=== PATIENT | male | born 1955 | race Caucasian/White ===

== ENCOUNTER → 2017-04-25 | Outpatient (CLI) | payer OTHER ==
[~2017-04-25] MED LIST: SULFUR HEXAFLUORIDE MICROSPHR 25 MG VIAL. IVP ONE
--- NOTE | 2017-04-26 11:24 | PCVCIMAG ---
APPROVED REPORT Study performed: 04/25/2017 08:47:16 EXAM: Comprehensive 2D, Doppler, and color-flow Echocardiogram Patient Location: Echo lab Status: routine Other Information Study Quality: Technically Limited Indications Pacemaker CAD 2D Dimensions IVSd: 9.11 (7-11mm)LVOT Diam: 26.54 (18-24mm) LVDd: 53.67 mm PWd: 8.49 (7-11mm)Ascending Ao: 31.86 (22-36mm) LVDs: 51.08 (25-40mm) Left Atrium: 34.89 (27-40mm) Aortic Root: 33.14 mm LV Single Plane 4CH: 40.27 % LV Single Plane 2CH: 40.73 %Matute's LVEF: 40.50 % Biplane EF: 41.5 % Volumes Left Atrial Volume (Systole) Single Plane 4CH: 44.38 mLSingle Plane 2CH: 69.82 mL LA ESV Index: 26.00 mL/m2 Aortic Valve AoV Peak Alvaro.: 1.09 m/s AO Peak Gr.: 4.71 mmHgLVOT Max P.03 mmHg LVOT Max V: 0.87 m/s ELLIS Vmax: 4.44 cm2 Mitral Valve E/A Ratio: 1.0 MV Decel. Time: 270.82 ms MV E Max Alvaro.: 0.74 m/s MV A Alvaro.: 0.71 m/s IVRT: 128.03 ms Tricuspid Valve TR Peak Alvaro.: 2.52 m/s TR Peak Gr.: 25.44 mmHg Left Ventricle The left ventricle is normal size. There is mild to moderate akinesis in the apical and anterior wall. There is normal left ventricular wall thickess. Left ventricular systolic function is reduced. LVEF is 40%. Right Ventricle The right ventricle is normal size. The right ventricular systolic function is normal. Atria The left atrium size is normal. The right atrium size is normal. Aortic Valve The aortic valve is normal in structure. No aortic regurgitation is present. There is no aortic valvular stenosis. Mitral Valve The mitral valve is normal in structure. Mild to moderate mitral regurgitation. No evidence of mitral valve stenosis. Tricuspid Valve The tricuspid valve is normal in structure. Trace tricuspid regurgitation. Pulmonic Valve The pulmonary valve is normal in structure. There is no pulmonic valvular regurgitation. Great Vessels The aortic root is normal in size. IVC is normal in size and collapses with >50% inspiration Pericardium There is no pericardial effusion. <Conclusion> The left ventricle is normal size. There is mild to moderate akinesis in the apical and anterior wall. Left ventricular systolic function is reduced. LVEF 35-40% The aortic valve is normal in structure. The mitral valve is normal in structure. Mild to moderate mitral regurgitation. The tricuspid valve is normal in structure. Trace tricuspid regurgitation. The pulmonary valve is normal in structure.
== END | disposition home or self-care (01) ==
LOC: PCVCIMAG 08:26
PROVIDERS: ATTEND Internal Medicine
DX: I08.1 Rheumatic disorders of both mitral and tricuspid valves (principal); I25.10 Atherosclerotic heart disease of native coronary artery without angina pectoris; Z95.0 Presence of cardiac pacemaker
CPT/HCPCS: 93306; Q9950

== ENCOUNTER → 2017-06-21 | Outpatient (CLI) | payer OTHER | END | disposition home or self-care (01) | LOC: PCVCCLINIC 10:48 | PROVIDERS: ATTEND Internal Medicine | DX: I25.10 Atherosclerotic heart disease of native coronary artery without angina pectoris (principal); I42.9 Cardiomyopathy, unspecified; I50.9 Heart failure, unspecified; E78.5 Hyperlipidemia, unspecified | CPT/HCPCS: 36415 ==

== ENCOUNTER → 2017-09-26 | Outpatient (CLI) | payer OTHER ==
--- NOTE | 2017-09-26 09:17 | PCVCIMAG ---
APPROVED REPORT Study performed: 09/26/2017 08:26:05 EXAM: Limited 2D, Doppler, and color-flow Echocardiogram Patient Location: Echo lab Status: routine BSA: 2.20 HR: 64 bpmBP: 114/78 mmHg Rhythm: NSR Other Information Study Quality: Adequate Risk Factors: Cardiac Risk Factors: Hyperlipidemia Indications Congestive Heart Failure Pacemaker CAD Cardiomyopathy 2D Dimensions LV Single Plane 4CH: 36.10 % LV Single Plane 2CH: 36.68 %Matute's LVEF: 36.39 % Biplane EF: 37.7 % Aortic Valve AoV Peak Alvaro.: 0.99 m/s AO Peak Gr.: 3.93 mmHg Tricuspid Valve TR Peak Alvaro.: 2.25 m/sRAP Estimate: 7.00 mmHg TR Peak Gr.: 20.28 mmHg PA Pressure: 28.00 mmHg Left Ventricle Left ventricle is grossly normal size. Hypokinesis of distal septum and dyskinesia apex. There is normal left ventricular wall thickness. Left ventricular systolic function is moderately decreased. LVEF is 30-35% with apical dyskinesia. Right Ventricle The right ventricle is normal size. The right ventricular systolic function is normal. Right ventricular systolic function could not be assessed. Right ventricular systolic function is grossly normal. Right ventricle is hypokinetic. Aortic Valve The aortic valve is normal in structure. Trace aortic regurgitation. Mitral Valve The mitral valve is normal in structure. Mild to moderate mitral regurgitation. Tricuspid Valve The tricuspid valve is normal in structure. Trace to mild tricuspid regurgitation.Pulmonary artery pressure is 28 mmHg. Great Vessels IVC is normal in size and collapses >50% with inspiration. <Conclusion> Left ventricle is grossly normal size. LVEF is 30-35% with apical dyskinesia. Hypokinesis of distal septum and dyskinesia apex. The aortic valve is normal in structure. Trace aortic regurgitation. The mitral valve is normal in structure. Mild to moderate mitral regurgitation. The tricuspid valve is normal in structure. Trace to mild tricuspid regurgitation.Pulmonary artery pressure is 28 mmHg.
== END | disposition home or self-care (01) ==
LOC: PCVCIMAG 08:05
PROVIDERS: ATTEND Internal Medicine
DX: I34.0 Nonrheumatic mitral (valve) insufficiency (principal); I50.9 Heart failure, unspecified; E78.5 Hyperlipidemia, unspecified; I25.5 Ischemic cardiomyopathy; I25.10 Atherosclerotic heart disease of native coronary artery without angina pectoris; Z95.0 Presence of cardiac pacemaker
CPT/HCPCS: 93306

== ENCOUNTER → 2018-03-27 | Outpatient (CLI) | payer MEDICARE, OTHER | END | disposition home or self-care (01) | LOC: PCVCCLINIC 09:38 | DX: E78.5 Hyperlipidemia, unspecified (principal); I25.5 Ischemic cardiomyopathy; I50.20 Unspecified systolic (congestive) heart failure; Z79.82 Long term (current) use of aspirin; Z79.899 Other long term (current) drug therapy; Z87.891 Personal history of nicotine dependence | CPT/HCPCS: 80061; 93005; G0463 ==

== ENCOUNTER → 2018-07-29 | Outpatient (CLI) | payer MEDICARE, OTHER | END | disposition home or self-care (01) | LOC: PCVCCLINIC 15:12 | PROVIDERS: ATTEND Internal Medicine | DX: I25.5 Ischemic cardiomyopathy (principal); I50.20 Unspecified systolic (congestive) heart failure; Z95.810 Presence of automatic (implantable) cardiac defibrillator; Z79.82 Long term (current) use of aspirin; Z79.899 Other long term (current) drug therapy | CPT/HCPCS: G0463 ==

== ENCOUNTER → 2018-11-20 | Outpatient (CLI) | payer MEDICARE, OTHER | END | disposition home or self-care (01) | LOC: PCVCCLINIC 14:42 | PROVIDERS: ATTEND Internal Medicine | DX: I48.91 Unspecified atrial fibrillation (principal); I25.5 Ischemic cardiomyopathy; I25.10 Atherosclerotic heart disease of native coronary artery without angina pectoris; Z95.810 Presence of automatic (implantable) cardiac defibrillator; Z79.82 Long term (current) use of aspirin; Z87.891 Personal history of nicotine dependence | CPT/HCPCS: 80061; G0463 ==

== ENCOUNTER → 2019-05-07 | Outpatient (CLI) | payer MEDICARE, OTHER | END | disposition home or self-care (01) | LOC: PCVCCLINIC 15:00 | PROVIDERS: ATTEND Internal Medicine | DX: I50.20 Unspecified systolic (congestive) heart failure (principal); I25.5 Ischemic cardiomyopathy; I48.0 Paroxysmal atrial fibrillation; I20.9 Angina pectoris, unspecified; E78.5 Hyperlipidemia, unspecified; E03.9 Hypothyroidism, unspecified; Z95.0 Presence of cardiac pacemaker; Z87.891 Personal history of nicotine dependence | CPT/HCPCS: G0463 ==

== ENCOUNTER → 2019-08-04 | Outpatient (CLI) | payer MEDICARE, OTHER ==
--- NOTE | 2019-08-04 10:19 | PCVCIMAG ---
APPROVED REPORT Study performed: 08/04/2019 08:55:59 EXAM: Comprehensive 2D, Doppler, and color-flow Echocardiogram Patient Location: Echo lab Room #: [id number]: routine BSA: 2.22 HR: 72 bpmBP: 80/60 mmHg Rhythm: Atrial Fibrillation Other Information Study Quality: Adequate Indications Hypotension Congestive Heart Failure Atrial Fibrillation Cardiomyopathy [place] 2D Dimensions IVSd: 6.52 (7-11mm)LVOT Diam: 24.18 (18-24mm) LVDd: 49.85 mm PWd: 6.77 (7-11mm)Ascending Ao: 34.02 (22-36mm) LVDs: 31.86 (25-40mm) Left Atrium: 32.53 (27-40mm) Aortic Root: 28.62 mm LV Single Plane 4CH: 31.01 % LV Single Plane 2CH: 29.31 % Biplane EF: 31.4 % Volumes Left Atrial Volume (Systole) Single Plane 4CH: 89.53 mLSingle Plane 2CH: 87.47 mL Biplane LA Volume: 89.00 mLLA ESV Index: 40.00 mL/m2 Aortic Valve AoV Peak Alvaro.: 0.95 m/s AO Peak Gr.: 3.61 mmHgLVOT Max P.95 mmHg LVOT Max V: 0.68 m/s ELLIS Vmax: 3.28 cm2 Mitral Valve MV E Max Alvaro.: 1.03 m/s MV PHT: 18.94 ms MVA (PHT): 11.62 cm2 IVRT: 70.93 ms TDI E/Lateral E': 9.36E/Medial E': 20.60 Medial E' Alvaro.: 0.05 m/s Lateral E' Alvaro.: 0.11 m/s Tricuspid Valve TR Peak Alvaro.: 2.45 m/s TR Peak Gr.: 23.98 mmHg TV Vmax: 0.89 m/sPA Pressure: 31.00 mmHg Left Ventricle The left ventricle is normal size. Global hypokinesis with segmantal wall motion abnormalities. Septal akinesis ,apical akinesis with dilitation, distal anterior wall akinesis There is normal left ventricular wall thickness. Left ventricular systolic function is moderate to severely decreased. LVEF is 30-35%. This study is not technically sufficient to allow evaluation of the LV diastolic function due to atrial fibrillation. Right Ventricle The right ventricle is normal size. Pacemaker lead is seen The right ventricular systolic function is normal. Atria Left atrium is mildly dilated. The right atrium size is normal. Pacemaker lead is present in the right atrium. Aortic Valve Aortic valve is trileaflet. No aortic regurgitation is present. There is no aortic valvular stenosis. Mitral Valve The mitral valve is normal in structure. Moderate to severe mitral regurgitation No evidence of mitral valve stenosis. Tricuspid Valve The tricuspid valve is normal in structure. Mild to moderate tricuspid regurgitation with a PA pressure of 31 mmHg. There is mild pulmonary hypertension. Pulmonic Valve The pulmonary valve is normal in structure. There is no pulmonic valvular regurgitation. Great Vessels The aortic root is normal in size. The ascending aorta is normal in size. Aortic arch is normal in caliber. IVC is not visualized. Pericardium There is no pericardial effusion. There is no pleural effusion. <Conclusion> The left ventricle is normal size. Global hypokinesis with segmantal wall motion abnormalities. Septal akinesis ,apical akinesis with dilitation, distal anterior wall akinesis LVEF is 30-35%. The right ventricle is normal size. Pacemaker lead is seen Left atrium is mildly dilated. The right atrium size is normal. Pacemaker lead is present in the right atrium. Aortic valve is trileaflet. The mitral valve is normal in structure. Moderate to severe mitral regurgitation The tricuspid valve is normal in structure. Mild to moderate tricuspid regurgitation with a PA pressure of 31 mmHg. There is mild pulmonary hypertension. The pulmonary valve is normal in structure. There is no pericardial effusion.
== END ==
LOC: PCVCIMAG 08:49
PROVIDERS: ATTEND Internal Medicine
DX: I48.91 Unspecified atrial fibrillation (principal); I25.10 Atherosclerotic heart disease of native coronary artery without angina pectoris; I44.2 Atrioventricular block, complete; I42.9 Cardiomyopathy, unspecified; I50.20 Unspecified systolic (congestive) heart failure; I25.5 Ischemic cardiomyopathy; I48.0 Paroxysmal atrial fibrillation; N18.2 Chronic kidney disease, stage 2 (mild); E78.5 Hyperlipidemia, unspecified; R60.0 Localized edema; Z95.810 Presence of automatic (implantable) cardiac defibrillator; Z87.891 Personal history of nicotine dependence
CPT/HCPCS: 80061; 93306; G0463